=== PATIENT | male | born 1955 | race Caucasian/White ===

== ENCOUNTER 2020-02-27 11:20 | Emergency (ER) | payer OTHER ==
[~2020-02-27] VITALS: Ht 170.2 cm; Wt 75.0 kg
[2020-02-27 11:53] LABS: BASOPHILS % 0.7 % (0.0-2.0); EOSINOPHILS % 4.6 % (0.0-5.0); HEMATOCRIT. 44.9 % (42.0-52.0); HEMOGLOBIN. 15.7 g/dL (14.0-18.0); LYMPHOCYTES % 25.4 % (20.0-50.0); MEAN CORPUSCULAR HEMOGLOBIN 29.6 pg (28.0-32.0); MEAN CORPUSCULAR VOLUME 84.8 fL (80.0-94.0); MEAN PLATELET VOLUME 10.1 fl (7.4-10.4); MONOCYTES % 6.9 % (2.0-8.0); NEUTROPHILS % 62.4 % (40.0-76.0); PLATELET 188 x1000/uL (130-400); RED CELL DISTRIBUTION WIDTH 13.9 % (11.6-14.6)
[2020-02-27 12:01] LABS: CHLORIDE 106 mEq/L (98-107)
[2020-02-27 12:06] LABS: ETHANOL BLOOD < 10 mg/dL
[2020-02-27 12:19] LABS: CLARITY URINE CLEAR (CLEAR); COLOR URINE YELLOW (YELLOW); KETONES URINE TRACE (NEGATIVE); LEUKOCYTE ESTERASE URINE NEGATIVE (NEGATIVE); NITRITE URINE NEGATIVE (NEGATIVE); OCCULT BLOOD URINE NEGATIVE (NEGATIVE); PROTEIN URINE 1+ (NEGATIVE)
[2020-02-27 12:21] LABS: CARBAMAZEPINE < 0.5 ug/mL (4-12); PHENOBARBITAL < 2.1 ug/mL (15.0-40.0); VALPROIC ACID < 3.0 ug/mL (50-100)
[2020-02-27 13:07] LABS: *AMPHETAMINES SCREEN URINE NEGATIVE (NEGATIVE); *BARBITURATES SCREEN URINE NEGATIVE (NEGATIVE); CANNABINOID URINE SCREEN NEGATIVE (NEGATIVE)
[2020-02-27 13:08] LABS: *BENZODIAZEPINES SCREEN URINE NEGATIVE (NEGATIVE); METHADONE URINE SCREEN NEGATIVE (NEGATIVE); OPIATES URINE SCREEN NEGATIVE (NEGATIVE); PHENCYCLIDINE URINE SCREEN NEGATIVE (NEGATIVE)
[2020-02-27 13:09] LABS: *COCAINE SCREEN URINE NEGATIVE (NEGATIVE)
[2020-02-27 14:25] VITALS: BP 167/86
== END 2020-02-27 14:51 | disposition home or self-care (01) ==
LOC: ER 11:20
DX: R56.9 Unspecified convulsions (principal); I10 Essential (primary) hypertension
CPT/HCPCS: 36415; 80053; 80156; 80165; 80184; 80185; 80305; 80320; 81003; 85025; 93005; 99284; G0480